=== PATIENT | female | born 2000 | race Caucasian/White ===

== ENCOUNTER 2023-01-17 13:47 | Emergency (ER) | payer OTHER ==
[2023-01-17 13:55] VITALS: BP 120/68; PULSE 91; RESP 18; TEMP 98.8; BMI 21.1
[2023-01-17] MEDS ORDERED: predniSONE 20 MG TABLET (UD) PO ONE (14:28)
[2023-01-17] MEDS ORDERED: predniSONE 20 MG TABLET (UD) ONE ×2 (14:31→14:33)
[2023-01-17] MEDS ORDERED: PENICILLIN G BENZATHINE 1,200,000 UNIT/2 ML PFS IM ONE ×2 (16:03→16:11)
[2023-01-17] MEDS ORDERED: IBUPROFEN 600 MG TABLET (FP) PO ONE ×2 (16:19→16:20)
== END 2023-01-17 16:50 | disposition home or self-care (01) ==
LOC: JERFT 13:47 → JER 13:47 → JERFT 16:50
DX: R07.0 Pain in throat (principal); R13.10 Dysphagia, unspecified; R50.9 Fever, unspecified; J02.0 Streptococcal pharyngitis
CPT/HCPCS: 84703; 87651; 99284-25